=== PATIENT | female | born 1970 ===

== ENCOUNTER 2018-03-19 12:30 | Inpatient (IN) | payer OTHER ==
[~2018-03-19] VITALS: Ht 154.9 cm; Wt 58.1 kg
[2018-03-19] MEDS ORDERED: COZAAR25 MG PO (16:14)
[2018-03-22] MEDS ORDERED: KETO10TA2 PO (08:09)
[2018-03-22] MEDS ORDERED: CODE1TAB37 PO (08:09)
== END 2018-03-22 09:43 | disposition home or self-care (01) | DRG 743 ==
LOC: SURH 03-21 07:00 → O/R 03-21 12:09 → SURH 03-21 12:30 → O/R 03-21 17:52 → OB/GYN 03-21 19:52
PROVIDERS: Obstetrics & Gynecology
PROC: 0UT97ZZ Resection of Uterus, Via Natural or Artificial Opening (ICD-10-PCS; principal; 2018-03-21 07:00)
PROC: 0TJB8ZZ Inspection of Bladder, Via Natural or Artificial Opening Endoscopic (ICD-10-PCS; 2018-03-21 07:00)
DX: D25.9 Leiomyoma of uterus, unspecified (principal); N93.8 Other specified abnormal uterine and vaginal bleeding; N81.5 Vaginal enterocele